=== PATIENT | male | born 1960 | race Caucasian/White ===

== ENCOUNTER 2017-09-03 12:38 | Day surgery (SDC) | payer OTHER ==
[2017-09-03] MEDS ORDERED: FENTAnyl 50 MCG/ML VIAL (15:02)
[2017-09-03] MEDS ORDERED: MIDAZOLAM 1 MG/ML 2 ML INJ ×2 (15:02)
== END 2017-09-03 17:30 | disposition home or self-care (01) ==
LOC: GIL 12:38
DX: K92.1 Melena (principal); K44.9 Diaphragmatic hernia without obstruction or gangrene; K21.0 Gastro-esophageal reflux disease with esophagitis; K29.60 Other gastritis without bleeding; K64.8 Other hemorrhoids; I10 Essential (primary) hypertension; E11.9 Type 2 diabetes mellitus without complications
CPT/HCPCS: 43239; 82962; 88305; 88312